=== PATIENT | female | born 1990 ===

== ENCOUNTER 2018-07-11 14:21 | Inpatient (IN) | payer BC ==
[~2018-07-11] VITALS: Ht 160 cm; Wt 75.5 kg
[2018-07-11 19:20] VITALS: BP 102/59; PULSE 92; TEMP 97.8
[2018-07-11] MEDS ORDERED: PRENATAL (19:30)
[2018-07-11] MEDS ORDERED: NATURAL IRON65 MG (19:30)
[2018-07-11 20:10] LABS: BASO % 0.2 % (0.0-2.0); EOS # 0.1 (0.0-0.7); EOS % 1.2 % (0-4.0); GRAN % 71.2 % (42.2-75.2); HEMATOCRIT 33.1 % (37.0-47.0); HEMOGLOBIN 11.6 g/dl (12.5-16.0); LYMPH # 1.8 (1.2-3.4); LYMPH % 18.5 % (20.0-51.0); MEAN CELL VOLUME 89 fl (80.0-100.0); MEAN CORPUSCULAR HEMOGLOBIN 31 pg (27.0-31.0); MEAN CORPUSCULAR HGB CONC 35 g/dl (33.0-37.0); MEAN PLATELET VOLUME 9.8 fl (7.4-10.4); MONO # 0.7 (0.1-0.6); MONO % 6.8 % (1.7-9.3); PLATELET COUNT 161 K/mm3 (130-400); RED BLOOD COUNT 3.73 M/mm3 (4.10-5.30); REDCELL DISTRIBUTION WIDTH-CV 12.7 % (11.5-14.5)
[2018-07-11 21:00] VITALS: BP 120/71; PULSE 85
[2018-07-11 21:30] VITALS: BP 115/64; PULSE 82
[2018-07-11 22:00] VITALS: BP 112/59; PULSE 81
[2018-07-11 22:30] VITALS: BP 111/59; PULSE 81
[2018-07-11 22:40] VITALS: BP 115/61; PULSE 82
[2018-07-12] VITALS (65 sets, daily range): BP systolic 101–148; BP diastolic 52–92; PULSE 69–108; TEMP 97.5–98.3
[2018-07-12] MEDS ORDERED: MOTRIN 800800 MG/TAB PO ×2 (21:35→21:36)
[2018-07-12] MEDS ORDERED: PERCOCET 325 MG1 TA2 PO ×2 (21:35→21:36)
[2018-07-13 00:10] VITALS: BP 120/66; PULSE 15; TEMP 71
[2018-07-13 01:30] VITALS: BP 226/64; PULSE 88
[2018-07-13 02:30] VITALS: BP 125/64; BP 225/64; PULSE 88
[2018-07-13 07:27] LABS: HEMOGLOBIN 10.8 g/dl (12.5-16.0)
[2018-07-13 07:28] LABS: HEMATOCRIT 31.6 % (37.0-47.0)
[2018-07-13 08:15] VITALS: BP 111/67; PULSE 92; TEMP 99.1
[2018-07-13 16:00] VITALS: BP 105/56; PULSE 80; TEMP 98.3
[2018-07-13 20:30] VITALS: BP 105/65; PULSE 85; TEMP 97.6
[2018-07-14 08:09] VITALS: BP 95/49; PULSE 93; TEMP 98.6
[2018-07-14 16:30] VITALS: BP 98/48; PULSE 68; TEMP 98.4
[2018-07-14 19:00] VITALS: BP 115/62; PULSE 93; TEMP 98
[2018-07-15 08:00] VITALS: BP 105/63; PULSE 87; TEMP 98
== END 2018-07-15 12:45 | disposition home or self-care (01) | DRG 788 ==
LOC: LDR 14:21 → OB 18:49 → LDR 18:49 → OB 07-12 23:25
PROVIDERS: Obstetrics & Gynecology
PROC: 3E0P7VZ Introduction of Hormone into Female Reproductive, Via Natural or Artificial Opening (ICD-10-PCS; 2018-07-11)
PROC: 10D00Z1 Extraction of Products of Conception, Low, Open Approach (ICD-10-PCS; principal; 2018-07-12)
PROC: 3E033VJ Introduction of Other Hormone into Peripheral Vein, Percutaneous Approach (ICD-10-PCS; 2018-07-12)
PROC: 10907ZC Drainage of Amniotic Fluid, Therapeutic from Products of Conception, Via Natural or Artificial Opening (ICD-10-PCS; 2018-07-12)
DX: O13.4 Gestational [pregnancy-induced] hypertension without significant proteinuria, complicating childbirth (principal); O64.8XX0 Obstructed labor due to other malposition and malpresentation, not applicable or unspecified; O62.1 Secondary uterine inertia; Z3A.40 40 weeks gestation of pregnancy; Z37.0 Single live birth; O99.02 Anemia complicating childbirth; O69.81X0 Labor and delivery complicated by cord around neck, without compression, not applicable or unspecified
CPT/HCPCS: J0690; J1885; J2210; J2270; J2590; J3010; J7120

== ENCOUNTER 2020-03-14 05:33 | Inpatient (IN) | payer BC ==
[2020-03-14] VITALS (22 sets, daily range): BP systolic 85–116; BP diastolic 48–68; PULSE 50–83; TEMP 97.4–98.4
[~2020-03-14] VITALS: Ht 162.6 cm; Wt 69.1 kg
[~2020-03-14 05:33] MED LIST: MOTRIN 800800 MG/TAB PO; NATURAL IRON65 MG; PERCOCET 325 MG1 TA2 PO; PRENATAL
--- NOTE | 2020-03-14 05:45 | NUR ---
Pt arrives to unit ambulatory for scheduled section with spouse. Clean gown on. Oriented to room. US and toco explained and applied. Vital signs obtained. IV started in right hand. Unable to obtain admission labs off of IV start, lab notified. Lactated Ringers infusing to gravity.
[2020-03-14 06:36] LABS: BASO % 0.2 % (0.0-2.0); EOS # 0.1 (0.0-0.7); EOS % 1.5 % (0-4.0); GRAN # 5.9 (1.4-6.5); GRAN % 68.4 % (42.2-75.2); HEMOGLOBIN 10.8 g/dl (12.5-16.0); LYMPH # 1.9 (1.2-3.4); MEAN CELL VOLUME 89 fl (80.0-100.0); MEAN CORPUSCULAR HEMOGLOBIN 30 pg (27.0-31.0); MEAN CORPUSCULAR HGB CONC 33 g/dl (33.0-37.0); MEAN PLATELET VOLUME 9.4 fl (7.4-10.4); MONO # 0.6 (0.1-0.6); MONO % 6.5 % (1.7-9.3); PLATELET COUNT 177 K/mm3 (130-400); RED BLOOD COUNT 3.65 M/mm3 (4.10-5.30)
[2020-03-14 06:38] LABS: HEMATOCRIT 32.5 % (37.0-47.0)
[2020-03-14] MEDS ORDERED: MOTRIN 800800 MG/TAB PO (07:25)
[2020-03-14] MEDS ORDERED: PERCOCET 325 MG1 TA2 PO (07:25)
--- NOTE | 2020-03-14 09:45 | NUR ---
BP noted 89/49. Patient denies hypotensive symptoms. New LR bag infusing. Vaginal bleeding WNL and urine output WNL. Will continue to monitor.
--- NOTE | 2020-03-14 17:11 | NUR ---
Pt up to bathroom with stand by assist by this RN and FOB. Edward cath d/c, thang care provided. Clean mesh underwear,thang pad, gown provided. Bed bad changed. Pt assisted to wheelchair, then to nursery to visit infant.
[2020-03-15 02:45] VITALS: BP 95/48; PULSE 76; TEMP 98.5
[2020-03-15 06:40] VITALS: BP 93/45; PULSE 73; TEMP 97.9
[2020-03-15 16:35] VITALS: BP 100/55; PULSE 68; TEMP 97.9
--- NOTE | 2020-03-15 18:30 | NUR ---
Report recieved. Ambulating in room. Percocet adminsitered per requested. Whiteboard updated and reviewed. Reports she is going to attempt to breastfeed. Denies questions or concerns.
[2020-03-15 19:40] VITALS: BP 118/77; PULSE 77; TEMP 97.7
[2020-03-16 07:00] VITALS: BP 117/64; PULSE 87; TEMP 97.5
--- NOTE | 2020-03-16 09:13 | NUR ---
Patient discharge teaching reviewed verbally with patient. Patient verbalizes understanding of PP and infant care. Patient discharge instructions reviewed, appointments reviewed, scripts for percocet and motrin given and explained. Escorted off unit.
== END 2020-03-16 09:20 | disposition home or self-care (01) | DRG 788 ==
LOC: OB 05:33
PROVIDERS: ADMIT Obstetrics & Gynecology
PROC: 10D00Z1 Extraction of Products of Conception, Low, Open Approach (ICD-10-PCS; principal; 2020-03-14)
DX: O34.211 Maternal care for low transverse scar from previous cesarean delivery (principal); Z37.0 Single live birth; O99.02 Anemia complicating childbirth; D64.9 Anemia, unspecified; O69.81X0 Labor and delivery complicated by cord around neck, without compression, not applicable or unspecified; Z3A.39 39 weeks gestation of pregnancy
CPT/HCPCS: J0690; J1885; J2270; J2370; J2405; J2590; J2765; J7120